=== PATIENT | female | born 1970 | race African-American/Black ===

== ENCOUNTER 2020-08-16 07:11 | Observation (INO) | payer OTHER ==
[~2020-08-16] VITALS: Ht 160 cm; Wt 81.6 kg
[2020-08-16 07:21] VITALS: BP 138/80
[2020-08-16 07:57] LABS: ABSOLUTE NEUTROPHILS 5.1 thou/uL (1.4-8.2); BASOPHILS 0.6 % (0.0-2.0); EOSINOPHILS 2.1 % (0.0-3.0); HEMATOCRIT 39.9 % (37.0-47.0); HEMOGLOBIN 13.5 gm/dL (12.0-15.0); LYMPHOCYTES 25.7 % (24.0-44.0); MCH 29.2 pg (26.0-34.0); MCHC 33.8 g/dL (28.0-37.0); MCV 86.3 fL (80.0-100.0); MONOCYTES 6.7 % (1.0-8.0); PLATELET COUNT 403 thou/uL (150-400); POLYS 64.9 % (36.0-66.0); RBC 4.63 mil/uL (4.20-5.00); RDW 14.2 % (10.5-14.5); WBC 7.9 thou/uL (4.0-11.0)
[2020-08-16 08:00] LABS: CALCIUM 8.8 mg/dL (8.5-10.1); CREATININE 0.9 mg/dL (0.6-1.0); POTASSIUM 3.8 mmol/L (3.5-5.1)
[2020-08-16 08:06] LABS: ALBUMIN 3.5 g/dL (3.4-5.0); TOTAL BILIRUBIN 0.5 mg/dL (0.2-1.0); TOTAL PROTEIN 8.6 g/dL (6.4-8.2)
[2020-08-16] MEDS ORDERED: VITAMIN C500 M1 PO (09:43)
[2020-08-16 09:53] VITALS: BP 119/69
[2020-08-16 10:50] VITALS: BP 124/76
--- NOTE | 2020-08-16 12:09 | NUR ---
Assumed pt care this afternoon from ER. Pt is alert & oriented x4. 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 Pt is on room air. Pt c/o of pain on RUQ abdomen. Pt at the bedside. Pt has L AC. Pt will have surgery tomorrow. Pt on the bed watching tv, bed on the lowest position, call light within reach. Will continue to monitor pt. Follow POC.
--- NOTE | 2020-08-16 12:42 | EKG ---
[address] [place] [address] ELECTROCARDIOGRAM REPORT Name: KALYN HWANGVICKY Benson Room #: 444-P ADM IN M.R.#: [id number] Admission: 08/16/20 Attend Phys: Jarett Fernandez, Discharge: Date of : 70 Report #: [id number] [facility] ED Test Date: 2020-08-16 Test Time: 07:37:42 Pat Name: WESLEY HWANG Department: Room: [facility] Gender: F Engineering Design Manager: Crystal GILBERT : 1970 Requested By: Renata Fernandez Order Number: [id number] MD: Rey Fontana Measurements Intervals [place] Rate: 88 P: 19 WV: 149 QRS: 52 QRSD: 72 T: 40 QT: 379 QTc: 459 Interpretive Statements Sinus rhythm Nonspecific T wave abnormality No previous ECG available for comparison Electronically Signed On 08-16-2020 12:42:23 CDT by Rey Fontana [email or web address] <ELECTRONICALLY SIGNED> By: Rey Fontana MD, [facility] 08/16/20 1242 0737 07 Rey Fontana MD, FACC /EPI
[2020-08-16 14:29] LABS: URINE BILIRUBIN NEGATIVE (Negative); URINE BLOOD 2+ (Negative); URINE CLARITY CLEAR; URINE COLOR YELLOW; URINE GLUCOSE-RANDOM* NEGATIVE (Negative); URINE KETONES 1+ (Negative); URINE LEUKOCYTES-REFLEX NEGATIVE (Negative); URINE NITRITE-REFLEX NEGATIVE (Negative); URINE PROTEIN (DIPSTICK) NEGATIVE (Negative); URINE UROBILINOGEN 0.2 E.U./dl (0.2-1.0)
[2020-08-16 14:37] LABS: SQUAMOUS >10 Many /LPF (0-3)
[2020-08-16 14:38] LABS: MUCUS 0-3 Light strn/LPF (None Seen)
[2020-08-16 14:39] LABS: BACTERIA-REFLEX 1-9 Few /HPF (None Seen); URINE RBC 3-10 Few /HPF (0-2); URINE WBC-REFLEX 0-5 Rare /HPF (0-5)
[2020-08-16 14:40] LABS: CASTS None Seen /LPF (None Seen)
[2020-08-16 16:25] VITALS: BP 127/70
[2020-08-16 19:33] VITALS: BP 118/64
[2020-08-17] VITALS (8 sets, daily range): BP systolic 109–147; BP diastolic 51–69
--- NOTE | 2020-08-17 03:26 | NUR ---
ASSESSED AT START OF SHIFT. PT RESTING WELL IN BED. DENIES PAIN ON ASSESSMENT. IV INTACT AND ABX GIVEN. PT IS DEAF USE OF HAND GESTURES AND I PAD TO COMMUNICATE. PT UP AD ASIM TO THE BATHROOM. NPO AT MIDNIGHT FOR SURGERY IN THE AM. DENIES N/V. CALL LIGHT AT REACH AND WILL CONT WITH POC TILL EOS.
--- NOTE | 2020-08-17 12:23 | NUR ---
ASSUMED PT CARE AROUND 0700. PT ALERT X ORIENTED X4. ON ROOM AIR. UP AD ASIM TO THE BATHROOM. PT IS DEAF, COMMUNICATES BY HAND GESTURES AND WRITING ON PAPER OR IPAD. PT TAKEN FOR LAP MARLO AROUND 0930. NPO SINCE MIDNIGHT.NO SKIN ISSUES.IV LEFT AC. WILL CONTINUE TO MONITOR ONCE THE PT IS BACK FROM PACCU.
[2020-08-17] MEDS ORDERED: IBUPROFEN 200200 M1 PO (15:26)
[2020-08-17] MEDS ORDERED: OXYCODONE HCL 55 MG PO (15:27)
[2020-08-17] MEDS ORDERED: MIRALAX17 GM PO (15:27)
[2020-08-17] MEDS ORDERED: ACETAMINOPHEN325 M1 PO (15:27)
[2020-08-17] MEDS ORDERED: COLACE 100 MG100 MG PO (15:27)
== END 2020-08-17 20:10 | disposition home or self-care (01) ==
LOC: ER 07:11 → 4S 09:35 → EROBS 09:35 → 4S 10:51
PROVIDERS: Emergency Medicine; Family Medicine; ADMIT Surgery; ATTEND Surgery
DX: K81.1 Chronic cholecystitis (principal); Z20.822 Contact with and (suspected) exposure to COVID-19; Z79.899 Other long term (current) drug therapy
CPT/HCPCS: 10195; 50010; 50101; 50411; 50555; 50558; 51489; 52265; 52266; 52287; 53307; 53310; 53312; 54022; 54118; 55245; 56462; 56525; 56526; 58574; 70005